=== PATIENT | male | born 2000 | race Caucasian/White ===

== ENCOUNTER 2021-01-03 09:58 | Outpatient (REF) | payer OTHER, SELFPAY | END 2021-01-03 09:59 | disposition home or self-care (01) | LOC: HO.SCI 09:58 | PROVIDERS: Visit Provider Orthopaedic Surgery | DX: Z13.89 Encounter for screening for other disorder (principal) ==

== ENCOUNTER 2021-01-14 13:10 | Outpatient (REF) | payer OTHER, SELFPAY ==
--- NOTE | ~2021-01-14 | FL_ITS ---
EXAMINATION: XR ARTHROGRAM SHOULDER, RIGHT CLINICAL INFORMATION: Right shoulder injury playing baseball. Question labral tear of right shoulder. COMPARISON: None TECHNIQUE: Following explaining right shoulder arthrogram procedure, benefits and risks, a written consent was obtained. The patient was placed supine on the fluoroscopy table and the anterior aspect of the right shoulder was cleaned and draped in usual sterile manner. 1% lidocaine was injected along the marked site in the anterior shoulder. A 22-gauge spinal needle was inserted from the skin marker into the joint space and 2 mL of nonionic contrast was injected. A single image was obtained confirming position of the joint space. Subsequently, 0.1 mL of gadolinium diluted with a 9 mL of 1% lidocaine and saline as a 10 mL volume was injected and needle withdrawn. Complete hemostasis was achieved at the puncture site. A sterile Band-Aid was applied postprocedure. Patient tolerated the procedure extremely well. FINDINGS: There is contrast visualized in the right glenohumeral joint space. The joint space is maintained normal. The AC joint is normal. No loose bodies or fractures seen. FLUOROSCOPY TIME: 2.1 minute. DOSE AREA PRODUCT: 61262 uGy-m2 (microgray-meter squared). FL/FL arthrogram shoulder RT IMPRESSION: Successful fluoroscopy-guided right shoulder contrast injection for MRI. Patient was subsequently referred to MRI for imaging.
--- NOTE | ~2021-01-14 | MR_ITS ---
EXAMINATION: MR SHOULDER WITH CONTRAST, RIGHT CLINICAL INFORMATION: Right shoulder pain with throwing motion. Injury in July 2019. Increasing pain. Evaluate for a superior glenoid labral lesion. COMPARISON: Right shoulder fluoroscopic arthrography dated 01/14/2021 TECHNIQUE: MRI of the shoulder was performed following the intra-articular administration of a dilute gadolinium-containing solution (arthrogram) on a high-field scanner. FINDINGS: ROTATOR CUFF: Intact. No muscle atrophy or fatty infiltration. BICEPS: Normal. CORACOACROMIAL ARCH: The undersurface of the acromion is curved with no subacromial spur. The acromioclavicular joint is normal. LABRUM/CAPSULE: There is thickening and abnormal signal through the posterosuperior and posterior labrum with posterior periosteal elevation/reaction and diffuse heterogeneous signal. No contrast extending into the intrasubstance of the posterior labrum. No superior labral tear. The joint capsule is intact. GLENOHUMERAL JOINT/MARROW: Normal. MR/MR shoulder RT w con IMPRESSION: 1. Thickening and abnormal signal throughout the posterosuperior and posterior labrum with adjacent periosteal elevation/reaction. Findings are consistent with degenerative tearing of the posterior labrum and can be seen in the setting of internal impingement given the history of a throwing injury. No contrast extending into the undersurface of the labrum to suggest a displaced undersurface tear. 2. Intact rotator cuff tendons.
== END 2021-01-14 13:11 | disposition home or self-care (01) ==
LOC: HO.XRAY 13:10
PROVIDERS: PCP Pediatrics; Visit Provider Orthopaedic Surgery
DX: M25.511 Pain in right shoulder (principal); S43.431S Superior glenoid labrum lesion of right shoulder, sequela
CPT/HCPCS: 23350; 73040; 73222; A9585